=== PATIENT | male | born 1990 | race Caucasian/White ===

== ENCOUNTER 2020-05-24 18:45 | Emergency (ER) | payer OTHER ==
[2020-05-24 19:13] VITALS: BP 147/82; PULSE 81; RESP 20; TEMP 98.3
--- NOTE | 2020-05-24 19:32 | XR ---
EXAMINATION TYPE: XR wrist complete LT DATE OF EXAM: 05/24/2020 COMPARISON: None HISTORY: Pain TECHNIQUE: 4 view left wrist FINDINGS: No acute fractures or dislocations are evident. Joint spaces are preserved. If there is pain at the anatomic snuff box, nuclear medicine bone scan with be recommended for additi onal evaluation. IMPRESSION: 1. Normal 4 view left wrist.
[2020-05-24] MEDS ORDERED: HYDROcodone/APAP 5-325MG 1 EACH TAB PO STA (19:48)
[2020-05-24] MEDS ORDERED: KETOROLAC 15 MG/ML 1 ML VIAL IM STA (19:48)
--- NOTE | 2020-05-24 20:08 | ED ---
Upper Extremity HPI - General Chief Complaint: Extremity Injury, Upper Stated Complaint: wrist injury Time Seen by Provider: 05/24/20 19:44 Source: patient Mode of arrival: ambulatory Limitations: no limitations - History of Present Illness Initial Comments: Patient sustained an injury to the left upper extremity in the area of the wrist. The pain is worse with movement. He has taken no medicines. He has no swelling. He has no abrasions. He has no redness or swelling. He has no nausea. He has no weakness. He has no paresthesias. The pain does not radiate anywhere. - Related Data Home Medications Medication Instructions Recorded Confirmed No Known Home Medications 06/13/14 06/13/14 Allergies Allergy/AdvReac Type Severity Reaction Status Date / Time No Known Allergies Allergy Verified 05/24/20 19:13 Review of Systems ROS Statement: Those systems with pertinent positive or pertinent negative responses have been documented in the HPI. ROS Other: All systems not noted in ROS Statement are negative. Past Medical History Past Medical History: No Reported History History of Any Multi-Drug Resistant Organisms: None Reported Past Surgical History: No Surgical Hx Reported Past Psychological History: No Psychological Hx Reported Smoking Status: Current every day smoker Past Alcohol Use History: Occasional Past Drug Use History: Marijuana General Exam Limitations: no limitations General appearance: alert Head exam: Present: atraumatic Extremities exam: Present: normal inspection, full ROM, tenderness Back exam: Present: normal inspection Neurological exam: Present: alert, oriented X3 Skin exam: Present: warm, dry, intact Course Vital Signs 05/24/20 19:11 Temperature 98.3 F Pulse Rate 81 Respiratory 20 Rate Blood Pressure 147/82 O2 Sat by Pulse 98 Oximetry Medical Decision Making - Medical Decision Making Patient presents with an injury to the left arm. X-rays are negative. He is neurovascularly intact. There is no evidence of arterial insufficiency to the distal extremity, no evidence of infection, no evidence of blood clots. Patient is stable for discharge. Disposition Clinical Impression: Wrist sprain Disposition: HOME SELF-CARE Condition: Good Instructions (If sedation given, give patient instructions): Wrist Injury (ED) Is patient prescribed a controlled substance at d/c from ED?: No Referrals: None,Stated [Primary Care Provider] - 1-2 days Hussain Choudhary DO [Doctor of Osteopathic Medicine] - 1-2 days
== END 2020-05-24 20:35 | disposition home or self-care (01) ==
LOC: EC 18:45
DX: S63.502A Unspecified sprain of left wrist, initial encounter (principal); F17.200 Nicotine dependence, unspecified, uncomplicated; F12.90 Cannabis use, unspecified, uncomplicated; X58.XXXA Exposure to other specified factors, initial encounter
CPT/HCPCS: 73110; 99283; 96372; J1885